=== PATIENT | male | born 1990 ===

== ENCOUNTER 2018-01-12 08:42 | Day surgery (SDC) | payer SELFPAY ==
[2018-01-06 10:14] VITALS: BMI 32.5
[2018-01-12] MEDS ORDERED: Propofol 10 mg/ml Inj (20 ML) ONE ×2 (09:10→10:47)
[2018-01-12] MEDS ORDERED: Lidocaine 1% 5ml Abboject ONE (09:11)
[2018-01-12] MEDS ORDERED: Midazolam 2 MG/2 ML VIAL ONE (09:11)
[2018-01-12] MEDS ORDERED: Lidocaine 2% Jelly (5 ml) TOP ONE (09:12)
[2018-01-12 09:17] VITALS: RESP 18; O2SAT 100
[2018-01-12] MEDS ORDERED: Lactated Ringer's 1,000 ML IV ONE ×2 (10:35→11:20)
[2018-01-12] MEDS ORDERED: Bacitracin Ointment 30 GM TUBE ONE (10:37)
[2018-01-12] MEDS ORDERED: Succinylcholine 200 mg/10 ml Inj IV ONE (10:50)
[2018-01-12] MEDS ORDERED: Sodium Chloride 0.9% 10 ML IV ONE ×2 (10:55→10:57)
[2018-01-12] MEDS ORDERED: Lactated Ringer's 1,000 ML IV SCH (11:45)
--- NOTE | 2018-01-12 14:55 | OP ---
PROCEDURE DATE: 01/12/2018 PREOPERATIVE DIAGNOSIS: Multiple penile condyloma. POSTOPERATIVE DIAGNOSIS: Multiple penile condyloma. PROCEDURE PERFORMED ON THE PATIENT: Excision and fulguration of multiple penile condylomas. SURGEON: Roxanna No MD TYPE OF ANESTHESIA: General. DESCRIPTION OF PROCEDURE: The patient was placed on the operating room table in a supine position, given general anesthesia. The area of the groin was draped and prepped. At this time, there were 3 large probably 1 cm plus size lesions that were excised out with a #15 blade scalpel. There were 5 other smaller condylomas that were fulgurated. At the end, all the tissues were fulgurated completely and the wounds were left just dry and the patient then was taken from the operating room in good condition. Roxanna No MD
[2018-01-13 00:12] VITALS: BP 152/92; PULSE 63; TEMP 97.5
== END 2018-01-12 13:15 | disposition home or self-care (01) ==
LOC: H.OPSURG 08:42
PROVIDERS: ATTEND Urology
DX: A63.0 Anogenital (venereal) warts (principal)
CPT/HCPCS: 54065; 88304; J0330; J0690; J1885; J2250; J2704; J2765; J3010; J7030; J7120